=== PATIENT | female | born 1980 | race Caucasian/White ===

== ENCOUNTER 2017-12-31 05:47 | Emergency (ER) | payer SELFPAY ==
[~2017-12-31] VITALS: Ht 167.6 cm; Wt 114.0 kg
[2017-12-31 06:25] LABS: HEMATOCRIT 35.4 % (36.0-46.0); MCHC 31.1 G/DL (30.0-36.0); MCV 73.9 FL (83-99); PLATELET COUNT 339 K/uL (156-360); RBC DIS.WIDTH-CV 16.7 % (11.8-14.6); RBC DIS.WIDTH-SD 44.4 % (39-53); RED BLOOD COUNT 4.79 M/uL (3.80-5.20); WHITE BLOOD COUNT 10.5 K/uL (4.1-10.2)
[2017-12-31 06:33] LABS: ALBUMIN 4.1 g/dL (3.2-4.8); CHLORIDE 103 mEq/L (99-109); POTASSIUM 3.8 mEq/L (3.7-5.4); SODIUM 140 mEq/L (136-147)
[2017-12-31 06:36] LABS: GLUCOSE 135 mg/dL (70-99); TOTAL PROTEIN 6.8 g/dL (6.4-8.3)
[2017-12-31 06:37] LABS: TOTAL BILIRUBIN 1.5 mg/dL (0.0-1.0)
[2017-12-31 06:39] LABS: ALKALINE PHOSPHATASE 195 IU/L (3-129); CREATININE 0.8 mg/dL (0.6-1.3); GFR ESTIMATE (CALCULATED) > 59 mL/min/
[2017-12-31 06:40] LABS: UREA NITROGEN (BUN) 8 mg/dL (9-23)
[2017-12-31 06:41] LABS: AST (GOT) 642 IU/L (2-34)
[2017-12-31 06:42] LABS: ALT (GPT) 404 IU/L (3-49)
[2017-12-31 06:43] LABS: LIPASE 17 U/L (1.0-51.0)
[2017-12-31 06:46] LABS: TROP-I INTERPRETATION NEGATIVE; TROPONIN-I < 0.01 ng/mL (0.0-0.30)
[2017-12-31 06:48] LABS: QUANTITATIVE HCG < 4.0 MIU/ML
[2017-12-31 11:16] LABS: APPEARANCE CLEAR ((CLEAR)); BILIRUBIN NEGATIVE; BLOOD SMALL; COLOR AMBER ((YELLOW)); GLUCOSE (STRIP) NEGATIVE; KETONES 20; LEUKOCYTES NEGATIVE; NITRITE NEGATIVE; PROTEIN (STRIP) NEGATIVE; SPECIFIC GRAVITY 1.057 (1.000-1.030)
[2017-12-31 11:34] LABS: BACTERIA RARE /HPF; EPITHELIAL CELLS RARE /HPF; MUCUS TRACE /LPF; RED BLOOD CELLS 15-20 /HPF (0-5); UCUL ADDED? NO; WHITE BLOOD CELLS 0-5 /HPF (0-5)
[2017-12-31] MEDS ORDERED: ZOFRAN4 MG PO (11:42)
[2017-12-31] MEDS ORDERED: PERCOCET 5/31 TABLET PO (11:42)
[2017-12-31 11:54] VITALS: BP 120/77
== END 2017-12-31 12:17 | disposition home or self-care (01) ==
LOC: EDBD 05:47 → EME 05:47
DX: K80.20 Calculus of gallbladder without cholecystitis without obstruction (principal); K76.0 Fatty (change of) liver, not elsewhere classified; F17.200 Nicotine dependence, unspecified, uncomplicated; Z98.84 Bariatric surgery status
CPT/HCPCS: 74177; 76705; 80053; 81003; 83690; 84484; 84702; 85027; 93005; 99281; 99285; J2405; J3010; J7030

== ENCOUNTER 2018-01-01 19:27 | Emergency (ER) | payer OTHER ==
[~2018-01-01] VITALS: Ht 167.6 cm; Wt 110.7 kg
[~2018-01-01 19:27] MED LIST: PERCOCET 5/31 TABLET PO; ZOFRAN4 MG PO
[2018-01-01 20:10] LABS: ALBUMIN 3.8 g/dL (3.2-4.8); CHLORIDE 104 mEq/L (99-109); POTASSIUM 4.2 mEq/L (3.7-5.4); SODIUM 133 mEq/L (136-147)
[2018-01-01 20:12] LABS: GLUCOSE 156 mg/dL (70-99); TOTAL PROTEIN 7.3 g/dL (6.4-8.3)
[2018-01-01 20:16] LABS: ALKALINE PHOSPHATASE 182 IU/L (3-129); CREATININE 0.9 mg/dL (0.6-1.3); GFR ESTIMATE (CALCULATED) > 59 mL/min/; TOTAL BILIRUBIN 4.9 mg/dL (0.0-1.0)
[2018-01-01 20:17] LABS: UREA NITROGEN (BUN) 7 mg/dL (9-23)
[2018-01-01 20:19] LABS: ALT (GPT) 368 IU/L (3-49)
[2018-01-01 20:22] LABS: HEMATOCRIT 34.3 % (36.0-46.0); HEMOGLOBIN 10.9 G/DL (11.9-15.5); MCH 23.2 PG (29.0-34.0); MCHC 31.8 G/DL (30.0-36.0); RBC DIS.WIDTH-CV 16.4 % (11.8-14.6); RBC DIS.WIDTH-SD 42.8 % (39-53); WHITE BLOOD COUNT 11.6 K/uL (4.1-10.2)
[2018-01-01 20:27] LABS: AST (GOT) 130 IU/L (2-34); QUANTITATIVE HCG < 4.0 MIU/ML
[2018-01-01 21:19] LABS: LIPASE 8 U/L (1.0-51.0)
[2018-01-01 21:23] LABS: HEMATOLOGY COMMENT 1 SN; PLAT.SUFFICIENCY ADEQUATE
[2018-01-01 21:29] LABS: PLATELET COUNT 236 K/uL (156-360)
[2018-01-02 04:03] VITALS: BP 107/64
== END 2018-01-02 04:07 | disposition short-term general hospital (02) ==
LOC: EME 19:27
DX: K83.0 Cholangitis (principal); K80.20 Calculus of gallbladder without cholecystitis without obstruction; K76.0 Fatty (change of) liver, not elsewhere classified; Z98.84 Bariatric surgery status; E66.01 Morbid (severe) obesity due to excess calories; Z68.39 Body mass index [BMI] 39.0-39.9, adult; I10 Essential (primary) hypertension; F32.9 Major depressive disorder, single episode, unspecified; F17.200 Nicotine dependence, unspecified, uncomplicated
CPT/HCPCS: 76705; 80053; 81003; 83605; 83690; 84702; 85027; 87040; 87077; 87186; 87801; 99281; 99285; J2405; J2543; J7030; S0030